=== PATIENT | male | born 1975 | race Two or more races ===

== ENCOUNTER 2018-04-07 20:58 | Emergency (ER) | payer MEDICAID ==
[2018-04-07 21:07] VITALS: BP 133/87
--- NOTE | 2018-04-07 21:38 | EDPHY ---
H & P Time Seen by Provider: 04/07/18 21:34 HPI/ROS: CHIEF COMPLAINT: Left great toe pain HISTORY OF PRESENT ILLNESS: Patient is 40-year-old male here with complaint of left great toe pain and swelling worsening for the last week. States he lost the toenail recently and accident and has a toenail was read growing he noticed that he was developing pain to the lateral aspect of the toenail. He has never had ingrown toenail before. He is also notice redness and swelling but has had no fever. There has been no discharge. REVIEW OF SYSTEMS: Constitutional: No fever, no chills. Eyes: No discharge. ENT: No sore throat. Cardiovascular: No chest pain, no palpitations. Respiratory: No cough, no shortness of breath. Gastrointestinal: No abdominal pain, no vomiting. Genitourinary: No hematuria. Musculoskeletal: No back pain. Skin: No rashes. Neurological: No headache. Smoking Status: Never smoked Physical Exam: General Appearance: Alert and no distress. Eyes: Pupils equal and round no injection. Respiratory: Chest is nontender, lungs are clear to auscultation. Cardiac: regular rate and rhythm. Gastrointestinal: Abdomen is soft and nontender Musculoskeletal: Neck is supple and nontender. Extremities have full range of motion and are nontender. Swelling to pulp of left great toe. No discharge. Skin: No rashes or lesions. Erythema to the distal phalanx of the left great toe Constitutional: Initial Vital Signs Temperature (C) 36.7 C 04/07/18 21:05 Heart Rate 86 04/07/18 21:05 Respiratory Rate 20 04/07/18 21:05 Blood Pressure 133/87 H 04/07/18 21:05 O2 Sat (%) 95 04/07/18 21:05 O2 Delivery Mode Room Air Allergies/Adverse Reactions: No Known Allergies Allergy (Verified 04/07/18 21:04) Home Medications: Medication Instructions Recorded Cephalexin [Keflex] 500 mg PO QID 7 Days capsule 04/07/18 Hydrocodone/APAP 5/325 [Petal 1 tab PO Q6 #6 tab 04/07/18 5/325 (*)] Medical Decision Making - Diagnostics Imaging: I viewed and interpreted images myself ED Course/Re-evaluation: Patient here with pain and swelling to tip of the left great toe consistent with ingrown toenail with possible early cellulitis. He has only had this for a few days and I do think that conservative management with warm soaks and manipulation of the skin is worth a try. The patient is willing to try this and will follow up in the ER if his pain is not improving. Patient seen at the supervision of Dr Michelle Differential Diagnosis: Abscess, Phalen, paronychia, fracture Departure - Departure Disposition: Home, Routine, Self-Care Clinical Impression: Ingrown toenail, Cellulitis Instructions: Ingrown Nail (ED) Referrals: NONE *PRIMARY CARE P,. [Primary Care Provider] - As per Instructions Bianca Preciado MD [Medical Doctor] - As per Instructions Prescriptions: Cephalexin [Keflex] 500 mg PO QID 7 Days capsule Hydrocodone/APAP 5/325 [Petal 5/325 (*)] 1 tab PO Q6 #6 tab
== END 2018-04-07 21:43 | disposition home or self-care (01) ==
DX: L60.0 Ingrowing nail (principal); L03.032 Cellulitis of left toe

== ENCOUNTER 2018-04-10 14:18 | Emergency (ER) | payer MEDICAID ==
[2018-04-10 14:22] VITALS: BP 120/88
--- NOTE | 2018-04-10 14:52 | EDPHY ---
H & P Smoking Status: Never smoked Time Seen by Provider: 04/10/18 14:26 HPI/ROS: CHIEF COMPLAINT: Ingrown right toenail HISTORY OF PRESENT ILLNESS: 42-year-old male presents to the emergency department with concerns about ingrown toenail. The patient was seen in the emergency department few days ago and was started on Keflex. He has been taking the medication as prescribed but is concerned because he still has continued ongoing pain. He states "I just cannot take the pain anymore". He states since starting the antibiotic, his redness and swelling has improved although the pain has remained. ROS: Denies numbness or tingling in his toes, retained foreign body, fevers, chills, pain in the right ankle or knee. Denies lymphangitis. (Alysno Weiss) Past Medical/Surgical History: Depression, back surgery, appendectomy (Alyson Weiss) Social History: , lives in [place], regional owner operator truck driver. (Alyson Weiss) Physical Exam: Onychomycosis noted to the right great toenail. Surrounding redness and swelling with tenderness with palpation especially to the lateral aspect of the right great toenail. There is no purulent drainage. There is no redness or warmth or lymphangitis. No palpable bony tenderness. (Alyson Weiss) Constitutional: Initial Vital Signs Temperature (C) 36.6 C 04/10/18 14:20 Heart Rate 76 04/10/18 14:20 Respiratory Rate 18 04/10/18 14:20 Blood Pressure 120/88 H 04/10/18 14:20 O2 Delivery Mode Room Air Allergies/Adverse Reactions: No Known Allergies Allergy (Verified 04/07/18 21:04) Home Medications: Medication Instructions Recorded Cephalexin [Keflex] 500 mg PO QID 7 Days capsule 04/07/18 Hydrocodone/APAP 5/325 [[place] 1 tab PO Q6 #6 tab 04/07/18 5/325 (*)] MDM/Departure - MDM Procedures: Verbal consent was obtained from the patient. The right great toe was anesthetized using digital block using 1% lidocaine without epinephrine 0.5% and bupivacaine without epinephrine. Small wedge resection was done to the right great toe. Patient tolerated this quite well. The procedure was performed by myself. (Alyson Weiss) ED Course/Re-evaluation: 42-year-old male presents to the emergency department with an ingrown toenail. The patient is requesting debridement. He tolerated this quite well, see procedure note. Patient will continue Keflex as prescribed. He was given a paraplanner for referral. (Alyson Weiss) I did not see this patient while he was in the emergency department. However his care was discussed with the PA while the patient was in the department. I agree with treatment plan and management (Elier Dunbar) - Depart Disposition: Home, Routine, Self-Care Clinical Impression: Onychomycosis of great toe, Ingrown right greater toenail Condition: Good Instructions: Ingrown Nail (ED), Acute Wounds (ED) Additional Instructions: Continue Keflex as prescribed. Follow up with paraplanner as discussed. Return to the emergency department if he developed fever, red streaking up your leg, or if you feel worse in any way. Referrals: Elier Zafar DPM [Doctor of Podiatric Medicine] - 2-3 days without fail ( Director Medical Safety on-call)
== END 2018-04-10 15:31 | disposition home or self-care (01) ==
PROC: 0HBRXZZ Excision of Toe Nail, External Approach (ICD-10-PCS; principal; 2018-04-10)
DX: L60.0 Ingrowing nail (principal); B35.1 Tinea unguium